=== PATIENT | male | born 1945 | race Caucasian/White ===

== ENCOUNTER → 2016-12-25 | Outpatient (CLI) | payer OTHER ==
[~2016-12-25] MED LIST: ADVA250A INH; ALBU17I INH; AMIO400T2 PO; BENZ100C4 PO; COUM3TAB PO; DIPH2%T PO; FEXO180 PO; TAB-TAB PO
[2016-12-25 13:53] LABS: BLOOD GAS BASE EXCESS -2.8 mmol/L (-2-2); BLOOD GAS CARBOXYHEMOGLOBIN 1.2 % (0-4); BLOOD GAS HCO3 21 mmol/L (22-26); BLOOD GAS METHEMOGLOBIN 1.2 % (0-2); BLOOD GAS O2 HGB SATURATION 94 % (90-100); BLOOD GAS OXYGEN CONTENT 19.1 Vol % (12.0-20.0); BLOOD GAS PCO2 33 mmHg (38-42); BLOOD GAS PO2 91 mmHg (61-120); BLOOD GAS TOTAL HGB 14.4 G/DL (12.0-16.0); CRITICAL VALUE NO; DRAW SITE RT RADIAL; FIO2 21 %; NUMBER OF ARTERIAL PUNCTURES 1; STAT NO; TEMP CORR TO 98.6; ULNAR PULSE PRESENT
== END ==
LOC: HRSP 12:46
PROVIDERS: ATTEND Internal Medicine Pulmonary Disease
DX: J45.909 Unspecified asthma, uncomplicated (principal)
CPT/HCPCS: 36600; 82805; 94060; 94620; 94726; 94729

== ENCOUNTER → 2017-04-08 | Day surgery (SDC) | payer OTHER ==
[~2017-04-08] MED LIST changes: +LIDOCAINE 1.5%/EPINEPHrine 1:200,000 PF SOLN 30 ML AMP ONE; +MIDAZOLAM HCL 2 MG/2 ML VIAL ONE; +ONDANSETRON HCL 4 MG/2 ML VIAL IV PUSH ONE; +PROPOFOL 200 MG/20 ML AMP IV ONE
--- NOTE | 2017-04-08 10:56 | TN ---
cc: JOANNA WILLIAM M.D. DATE OF SURGERY: 04/08/2017 PREOPERATIVE DIAGNOSIS Melanoma in situ, left mandibular skin. POSTOPERATIVE DIAGNOSIS Melanoma in situ, left mandibular skin. PROCEDURE Wide local excision melanoma in situ left mandibular skin with two-layer closure; excision size 1 x [address] Joanna William. DISH ROOM WORKER Luz Wallace, MS III. ANESTHESIA General with laryngeal mask. INDICATION A 71-year-old gentleman who was sent to us in consultation by Dr. Ly' office, Ninfa Waller, who did a shave biopsy of a pigmented lesion on the left mandibular skin. The patient was found to have melanoma in situ with positive peripheral and deep margins. Recommendations were made for wide local excision. INTRAOPERATIVE FINDINGS Successful removal of the zhen of concern. This specimen was sent with short stitch at 12 o'clock, long stitch at 3 o'clock. ESTIMATED BLOOD LOSS Minimal. DESCRIPTION OF PROCEDURE IN DETAIL The patient was identified as Solitario Dixon, taken to the operating room and placed in supine position. Sequential compression devices were placed on bilateral lower extremities. Following induction of adequate general anesthesia with a laryngeal mask the area of concern was prepped and draped in the usual sterile fashion with Betadine. A timeout procedure was performed. Following completion of the timeout procedure to everyone's satisfaction within the room, proposed elliptical incision lines of Sondra were made with a marking pen and infiltrated with local anesthetic. The incision was carried out with a scalpel and hemostasis controlled with electrocautery. Using sharp dissection the specimen was removed in its entirety and marked and sent to pathology. The small bleeding points were controlled with electrocautery. Once the wound was ensured to be dry it was closed in two layers with 3-0 Vicryl and 4-0 Monocryl. Dressings were applied with Mastisol and half-inch brown Steri-Strips. The patient tolerated the procedure without apparent complication. Sponge, needle and instrument counts were correct at the end of the case. MD RADHA Collado/JAIR /10:29 AM /10:43 AM
== END | disposition home or self-care (01) ==
LOC: ESDC 08:01
PROVIDERS: ATTEND Surgery Trauma Surgery
DX: D03.39 Melanoma in situ of other parts of face (principal); Z01.810 Encounter for preprocedural cardiovascular examination
CPT/HCPCS: 00300; 11643; 12052; 88305; 93005; J2405; J2250

== ENCOUNTER 2017-05-28 12:00 | Day surgery (SDC) | payer OTHER ==
[~2017-05-28] VITALS: Ht 177.8 cm; Wt 83.4 kg
[~2017-05-28 12:00] MED LIST changes: -LIDOCAINE 1.5%/EPINEPHrine 1:200,000 PF SOLN 30 ML AMP ONE; -MIDAZOLAM HCL 2 MG/2 ML VIAL ONE; -ONDANSETRON HCL 4 MG/2 ML VIAL IV PUSH ONE; -PROPOFOL 200 MG/20 ML AMP IV ONE
[2017-05-28] MEDS ORDERED: CHLORHEXIDINE GLUCONATE 2 % 1 PACK (2 CLOTHS) TOPICAL PRN (12:30)
[2017-05-28] MEDS ORDERED: LACTATED RINGER'S 1000 ML IV PRN (12:30)
[2017-05-28] MEDS ORDERED: LORazepam 1 MG TAB SL SCH (12:30)
[2017-05-28] MEDS ORDERED: SODIUM CHLORID 0.9% 500 ML IV PRN (12:30)
[2017-05-28] MEDS ORDERED: POVIDONE IODINE 5% (ANTISEPSIS KIT) 4 APPLICATIONS EACH NARE PRN (12:30)
[2017-05-28] MEDS ORDERED: SODIUM CHLORID 0.9% 500 ML INJ 500 ML IV SCH (12:30)
[2017-05-28] MEDS ORDERED: METOPROLOL TARTRATE 25 MG TAB PO PRN (12:30)
[2017-05-28 12:43] LABS: AUTOMATED NEUTROPHIL # 3.4 TH/MM3 (1.8-7.7); BASOPHIL # 0.1 TH/MM3 (0-0.2); BASOPHIL % 0.9 % (0.0-2.0); EOSINOPHIL # 0.5 TH/MM3 (0-0.4); EOSINOPHIL % 7.8 % (0.0-4.0); HEMATOCRIT 44.8 % (39.0-51.0); HEMO FLAGS DIFF FINAL; LYMPH % 27.5 % (9.0-44.0); LYMPHOCYTE # 1.7 TH/MM3 (1.0-4.8); MEAN CELL VOLUME 97.2 FL (80.0-100.0); MEAN CORPUSCULAR HEMOGLOBIN 32.6 PG (27.0-34.0); MEAN CORPUSCULAR HGB CONC 33.5 % (32.0-36.0); MONO % 10.5 % (0.0-8.0); NEUT % 53.3 % (16.0-70.0); PLATELET COUNT 262 TH/MM3 (150-450); RED BLOOD COUNT 4.61 MIL/MM3 (4.50-5.90); RED CELL DISTRIBUTION WIDTH 13.2 % (11.6-17.2); WHITE BLOOD COUNT 6.3 TH/MM3 (4.0-11.0)
[2017-05-28] MEDS ORDERED: ALLE60TA PO (12:48)
[2017-05-28] MEDS ORDERED: UMEC1AER INH (12:48)
[2017-05-28] MEDS ORDERED: UNIS25TA3 (12:48)
[2017-05-28] MEDS ORDERED: VENTAER INH (12:48)
[2017-05-28] MEDS ORDERED: APIX5TAB PO (12:48)
[2017-05-28 12:51] LABS: APTT (PATIENT) 27.4 SEC (24.3-30.1); PROTHROMBIN TIME - PATIENT 10.8 SEC (9.8-11.6)
[2017-05-28 13:02] LABS: BICARBONATE 27.6 MEQ/L (21.0-32.0); POTASSIUM 4.4 MEQ/L (3.5-5.1)
--- NOTE | 2017-05-28 14:43 | EKG ---
Date Performed: 05/28/2017 Time Performed: 12:44:40 PTAGE: 71 years EKG: Atrial fibrillation. Left anterior fascicular block Abnormal ECG Compared to prior electroc ardiogram, atrial fibrillation is now present . PREVIOUS TRACING : 12/07/2010 06.11 DOCTOR: Elan Soriano Interpretating Date/Time 05/28/2017 14:41:09
[2017-05-28] MEDS ORDERED: LEVOFLOXACIN 500 MG PREMIX INJ 100 ML IV ONE (16:12)
[2017-05-28] MEDS ORDERED: HEPARIN-D5W 25,000 U/250 ML 250 ML ONE (16:27)
[2017-05-28] MEDS ORDERED: ISOPROTERENOL HCL 1 MG/5 ML AMP ONE (16:27)
[2017-05-28] MEDS ORDERED: HEPARIN SODIUM - IV 10,000 UNITS/10 ML VIAL ONE (16:27)
[2017-05-28] MEDS ORDERED: PROTAMINE SULFATE 50 MG/5 ML VIAL ONE (16:27)
[2017-05-28] MEDS ORDERED: LORazepam 2 MG/ML VIAL IV PUSH PRN (18:45)
[2017-05-28] MEDS ORDERED: ONDANSETRON HCL 4 MG/2 ML VIAL IV PUSH PRN (18:45)
[2017-05-28] MEDS ORDERED: ALBUTEROL SULFATE 90 MCG/ACT HFA 8 GM INHALER INH PRN (18:45)
[2017-05-28] MEDS ORDERED: oxyCODONE/ACETAMINOPHEN 5 MG/325 MG TAB PO PRN ×2 (18:45)
[2017-05-28] MEDS ORDERED: LIDOCAINE HCL 1% 50 ML VIAL INFIL PRN (18:45)
[2017-05-28] MEDS ORDERED: ATROPINE SULFATE 1 MG/ML VIAL IV PUSH PRN (18:45)
[2017-05-28] MEDS ORDERED: BACITRACIN OINT 0.9 GM PKT TOP ONE (18:45)
[2017-05-28] MEDS ORDERED: SODIUM CHLOR 0.9% 250 ML INJ 250 ML IV PRN (18:45)
--- NOTE | 2017-05-28 18:49 | CATHPROC ---
[facility] HIS Report Study Information Study Number Admission Scheduled Start Study Start [id number] May 28 2017 12:00PM 05/28/2017 May 28 2017 3:32PM [place] Service Electrophysiology Study Admit Source Facility Department Other [facility] - Assistant Field Hockey Coach Physician and Clinical Staff Initial Ajit Zafar Technician Helper Instrument Joycelyn Mart,BATCH MIXER OPERATOR TECH2 Technician Helper Instrument Love García,SHORT ORDER FRY COOK Other Anesthesia, SENIOR ENERGY ANALYST Other Tamy Vargas,NELDARN Recorder Magda West RN Scrub Mian Bright,RT(R) Procedures Performed Procedure Location (Site) Vessel Name Ablation Procedure Cardioversion ICE CATHETER INSERT RA Atruim Equipment Time Carpet Repairer Description Size Mfg Part Number Used/Scraped NEEDLE, TRANSSEPTAL NRG 98 15:34 [facility] [id number] Used C1 BIOSFliqzTER [id number] 17:15 CATHETER, ACUNAV FR10 ICE FR 10 Used INC. *[id number] [employer]/ EP 15:34 KIT, TRANSDUCER / AFIB [id number] Used PACER [id number] CATHETER, TACTICATH ABLAT BUNDLE 15:34 BUNDLE-[employer]. SARAY Used 65 BUNDLE *[id number]- BUNDLE [id number] CATHETER, FR7 OPTIMA SPIRAL 15:34 BUNDLE-[employer]. SARAY FR7 *[id number]- Used BUNDLE BUNDLE [id number] 15:34 BUNDLE-[employer]AY CATHETER, JSN, QUAD BUNDLE FR 5 *[id number]- Used BUNDLE [id number] 15:34 BUNDLE-[employer]. SARAY CATHETER, JSN, QUAD BUNDLE FR 5 *[id number]- Used BUNDLE [id number] SET, COOL POINT TUBING 15:34 BUNDLE-[employer]. SARAY *[id number]- Used BUNDLE BUNDLE SHEATH, FR8.5 STEERABLE SM 15:34 BUNDLE-[employer]. SARAY 71CM [id number] Used 71CM BUNDLE COVER, TRANSDUCER CABLE 15:34 CONE StormMQ [id number] Used ACUNAV 15:34 CORDIS/PACER SHEATH, FR10 FOREIGN 11CM FR 10 [id number] Used 15:34 CORDIS/PACER SHEATH, FR9 FOREIGN 11CM FR 9 [id number] Used 16:53 CORDIS/PACER SHEATH, FR9 FOREIGN 11CM FR 9 [id number] Used [id number] 15:34 [employer] PACK, CCL CUSTOM * Used *[id number] 15:34 MEDLINE PACER MCCARTHY, LIMB * 2530 *[id number] Used [id number] 15:34 [facility] MEDICAL SHEATH, FR4.5 PRELUDE 11CM FR 4.5 Used [id number] 15:34 NAMIC TUBING, HIGH PRESSURE 48" 48" Used *[id number] 15:34 NAMIC TUBING, HIGH PRESSURE 48" 48" Used *[id number] 15:34 [employer] BL[employer]ET,WARM AIR CCL * Used *[id number] [id number] 15:34 [facility] MEDICAL ELECTRODE KIT, HOLA X SURFACE * Used *[id number] 15:34 [facility] MEDICAL SHEATH, EPS, FR6 FAST CATH FR 6 Used *[id number] 15:34 [facility] MEDICAL SHEATH, EPS, FR7 FAST CATH FR 7 [id number] Used [id number] 15:34 [facility] MEDICAL SHEATH, EPS, FR8 FAST CATH FR 8 Used *[id number] [facility] PAD, ELECTROSURGICAL 15:34 * [id number] *[id number] Used SURGICAL GROUNDING (BLUE) History: Allergies Allergy Reaction Ambien Psychosis Ativan Lethargy SPLENDA Cramping lorazepam Lethargy zolpidem Psychosis History: Risk Factors Dyslipidemia Yes Chronic Lung Disease Labs Hgb (g/dl) Hct (%) RBC (MIL/MM3) WBC (l/cumm) Platelets (thousands) 11.60-17.00 35.00-51.00 4.00-5.90 4.00-11.00 150.00-450.00 15.0 44 4.6 6.3 262 Glucose (mg/dl) BUN (mg/dl) Creatinine (mg/dl) BUN:Creatinine (1:x) 74.00-106.00 7.00-18.00 0.50-1.30 10.00-20.00 93 15 1.0 15 Na (meq/l) K (meq/l) 136.00-145.00 3.50-5.10 137 4.4 INR (PTT:PT) 0.90-1.10 1 Medication Medication Total Dose (Bolus/Oral) Medication Total Dosage/Unit 1% XYLOCAINE 40 mL HEPARIN 72333 units PROTAMINE 40 mg Medications (Bolus/Oral) Medication Time Given Dosage/Unit Administered By Reason 1% XYLOCAINE 05/28/2017 5:08:03 PM 20 mL Ajit Redding For pain 20 mL 1% XYLOCAINE given in lab by Ajit Redding in Left Groin via Subcutaneous. Ordered by Bhupendra Redding. Reason: For pain. 1% XYLOCAINE 05/28/2017 5:12:20 PM 20 mL Ajit Redding As per physicians ve rbal order 20 mL 1% XYLOCAINE given in lab by Ajit Redding in Right Groin via Subcutaneous. Ordered by Jimmy Redding. Reason: As per physicians verbal order. HEPARIN 05/28/2017 5:18:24 PM 21704 units Ajit Redding As per physicians verbal order 56250 units HEPARIN given in lab by Ajit Redding in Right Antecubital via Peripheral IV. Ordered by Ajit Redding. Reason: As per physicians verbal order. PROTAMINE 05/28/2017 6:38:32 PM 40 mg Anesthesia, SENIOR ENERGY ANALYST As per physicians ve rbal order 40 mg PROTAMINE given in lab by Anesthesia, SENIOR ENERGY ANALYST in Right Antecubital via Peripheral IV. Ordered by Ajit Joe. Reason: As per physicians verbal order. Medication (Drip) Medication Time Given Dosage/Unit Concentration/Unit Diluent (ml) Solution HEPARIN DRIP 05/28/2017 5:32:40 PM 1000 units/hr 60227 units 250 D5W 1000 units/hr HEPARIN DRIP given in lab by Ajit Redding in Right Antecubital via Peripheral IV. Pump /Drip Flow = 10 ml/hr [place] [address] units in 250 ml. Ordered by Ajit Redding. Reason: As per physicians verbal or robin. ISUPREL 05/28/2017 6:21:00 PM 20 mcg/min 1 mg 250 NaCl .9 20 mcg/min ISUPREL given in lab by Anesthesia, SENIOR ENERGY ANALYST in Right Antecubital via Peripheral IV. Pump/Drip Flow = 300 ml/hr using NaCl .9 with a concentration of 1 mg in 250 ml. Ordered by Ajit Redding. Reason: As per physicians verbal order. IV Solutions 05/28/2017 4:14:14 PM 0 mL (IV) NaCl .9 IV Solutions given in lab by Anesthesia, SENIOR ENERGY ANALYST in Left Antecubital via Peripheral IV. Pump/Drip Flow = 50 ml/hr using NaCl .9. Ordered by Ajit Redding. Reason: As per physicians verbal order. IV Solutions 05/28/2017 4:14:39 PM 0 mL (IV) NaCl .9 IV Solutions given in lab by Anesthesia, SENIOR ENERGY ANALYST in Right Antecubital via Peripheral IV. Pump/Drip Flow = 50 ml/hr using NaCl .9. Ordered by Ajit Redding. Reason: As per physicians verbal order. LEVAQUIN 05/28/2017 5:00:00 PM 100 mL/hr 500 100 NaCl .9 100 mL/hr LEVAQUIN given in lab by Anesthesia, SENIOR ENERGY ANALYST via Peripheral IV. Pump/Drip Flow = 0 ml/hr using NaCl .9 with a concentration of 500 in 100 ml. Ordered by Ajit Redding. Reason: As per physicians verbal order. ellsworth insertion Initial Case Assessment Cardiovascular HR NIBP Chest Pain 80 158/101 0 Edema Present Skin color Skin None Normal Warm Dry Neurological State Oriented to time-place- Alert Moves all extremities person Respiration - General Respiration Rate SpO2 (%) (B/min) 20 98 Final Case Assessment Cardiovascular HR NIBP 104 132/64 Edema Present Skin color Skin None Normal Warm Dry Neurological State Oriented to time-place- Alert Moves all extremities person Respiration - General Respiration Rate SpO2 (%) (B/min) 20 98 Chronological Log Time Study Chronological Log 16:11:13 Patient arrived via Bed. 16:11:30 Patient Name, D.O.B, / Armband Verified By R.N. 16:11:37 Consent signed by the physician and the patient and verified by the Assistant Field Hockey Coach staff. 16:12:18 Pre-op and post- op instructions given; patient acknowledges understanding of instructions. 16:12:20 Verbal Stimulation=2 Physical Stimulation=2 Airway=2 Respiration=2 TOTAL=10. (0=absent, 1=l imited, 2=present) 16:12:41 Anesthesia at bedside. Assumes care of patient. Vivek SENIOR ENERGY ANALYST 16:12:52 Presedation assessment performed by Assistant Field Hockey Coach RN. 16:12:55 Patient has been NPO for More than 6Hrs. 16:13:04 Skin Breakdown- cut above left elbow 16:13:11 Patient Warmer Placed on the Table. 16:13:17 Disposable Defibrillator Pads Placed On Patient. 16:13:19 Sahra Prominences Protected 16:13:26 A # 20 IV was noted in the Antecubital (left). Grade = ~GRADE~ 16:13:57 A # 20 IV was noted in the Antecubital (right). Grade = ~GRADE~ IV Solutions given in lab by Anesthesia, SENIOR ENERGY ANALYST in Left Antecubital via Peripheral IV. Pump/Drip Flow = 50 ml/hr using 16:14:14 NaCl .9. Ordered by Ajit Redding. Reason: As per physicians verbal order. IV Solutions given in lab by Anesthesia, SENIOR ENERGY ANALYST in Right Antecubital via Peripheral IV. Pump/Drip Flow = 50 ml/hr using 16:14:39 NaCl .9. Ordered by Ajit Redding. Reason: As per physicians verbal order. 16:15:00 History and physical on the chart or being dictated. Assessment: Initial Case, HR=80 BPM, ZETV=908/101 mmhg, Chest Pain=0, Edema=None, Color=Normal, Skin = Warm, Dry 16:15:03 Neurological: State=Alert, Ox3, RINALDI Respiration: Resp=20 B/min, SpO2=98 % 16:15:15 Table restraints applied according to hospital policy 16:15:42 Right groin prepped with 2% chlorhexidine, and draped after a 3 min. waiting time. 16:15:47 Left groin prepped with 2% chlorhexidine, and draped after a 3 min. waiting time. Patient intubated by anesthesiologist. Indwelling uretheral catheter inserted by Lesia MENDEZ w ith clear yellow urine 16:50:50 noted. 100 mL/hr LEVAQUIN given in lab by Anesthesia, SENIOR ENERGY ANALYST via Peripheral IV. Pump/Drip Flow = 0 ml/hr using NaCl .9 with 17:00:00 a concentration of 500 in 100 ml. Ordered by Ajit Redding. Reason: As per physicians verbal or robin. ellsworth insertion 17:00:50 MD arrived. Time Out. Correct patient, procedure, procedure equipment, site and side verified with physicia n present. Time 17:05:23 concurred by MD, individual staff and SENIOR ENERGY ANALYST. Time Out #2 - Consents verified, patient in correct position, all results are labled and displa yed, safety precautions 17:05:27 taken, antibiotics administered. Time out concurred by MD, individual staff and SENIOR ENERGY ANALYST in procedu re 17:05:31 Case Start 17:05:34 SARI begun at bedside. 17:07:53 SARI completed. 20 mL 1% XYLOCAINE given in lab by Ajit Redding in Left Groin via Subcutaneous. Ordered by Ajit Guzmán. 17:08:03 Reason: For pain. 17:08:42 Vascular access was obtained in the Fem Vein (left). 17:09:17 Vascular access was obtained in the Fem Vein (left). 17:09:18 Vascular access was obtained in the Fem Vein (left). 17:09:40 Vascular access was obtained in the Fem Art (left). 17:10:50 A SHEATH, EPS, FR6 FAST CATH FR 6 was advanced into the Fem Vein (left) using the Percutane ous technique. 17:11:12 A SHEATH, EPS, FR7 FAST CATH FR 7 was advanced into the Fem Vein (left) using the Percutane ous technique. 17:11:24 A SHEATH, FR10 FOREIGN 11CM FR 10 was advanced into the Fem Vein (left) using the Percutaneo us technique. 17:11:42 A SHEATH, FR4.5 PRELUDE 11CM FR 4.5 was advanced into the Fem Art (left) using the Percutan eous technique. 20 mL 1% XYLOCAINE given in lab by Ajit Redding in Right Groin via Subcutaneous. Ordered by Ajit Vance. 17:12:20 Reason: As per physicians verbal order. 17:12:30 Vascular access was obtained in the Fem Vein (right). 17:12:49 Vascular access was obtained in the Fem Vein (right). 17:12:55 A SHEATH, EPS, FR8 FAST CATH FR 8 was advanced into the Fem Vein (right) using the Percutan eous technique. A CATHETER, JSN, QUAD BUNDLE FR 5 was advanced vis Fem Vein (left) and placed in the CS. Placem ent was visually 17:14:24 confirmed under fluoroscopy. A CATHETER, JSN, QUAD BUNDLE FR 5 was advanced vis Fem Vein (left) and placed in the HIS. Place ment was 17:14:40 visually confirmed under fluoroscopy. 17:15:03 CATHETER, ACUNAV FR10 ICE FR 10 Was Postioned. A SHEATH, FR8.5 STEERABLE SM 71CM BUNDLE 71CM was exchanged in the Fem Vein (right). This was n ecessary in 17:16:43 order for catheter support. 17:17:21 Sanford needle inserted. 17:18:03 Transseptal. Sanford needle removed. 09173 units HEPARIN given in lab by Ajit Redding in Right Antecubital via Peripheral IV. Order ed by Ajit Redding. 17:18:24 Reason: As per physicians verbal order. A CATHETER, FR7 OPTIMA SPIRAL BUNDLE FR7 was advanced vis Fem Vein (right) and placed in the LA . Placement 17:20:00 was visually confirmed under fluoroscopy. 17:26:24 Activated Clotting Time Drawn 17:27:28 Mapping in progress. 17:30:00 Mapping completed. 17:30:10 Mapping catheter removed. A CATHETER, TACTICATH ABLAT 65 BUNDLE was advanced vis Fem Vein (right) and placed in the LA. P lacement was 17:30:30 visually confirmed under fluoroscopy. 17:30:45 Ablation begun. 17:31:58 ACT (Normal Range 90-180) = 369 1000 units/hr HEPARIN DRIP given in lab by Ajit Redding in Right Antecubital via Peripheral IV . Pump/Drip Flow = 10 17:32:40 ml/hr [place] [address] units in 250 ml. Ordered by Ajit Redding. Re ason: As per physicians verbal order. 17:40:40 Reference ECG taken 18:00:24 Activated Clotting Time Drawn 18:06:00 ACT (Normal Range 90-180) = 352 18:16:16 Ablation catheter removed. 18:16:29 Mapping catheter reinserted. 18:18:15 ECG rhythm of AF noted. Patient cardioverted at 200 joules. Success synchcronized 20 mcg/min ISUPREL given in lab by AnesthesiaCECILIA in Right Antecubital via Peripheral IV. Pum p/Drip Flow = 300 18:21:00 ml/hr using NaCl .9 with a concentration of 1 mg in 250 ml. Ordered by Ajit Redding. Reaso n: As per physicians verbal order. 18:31:43 Isuprel gtt stopped. 18:34:47 PACU called. Spoke to Chandu 18:34:58 Bedside Report will be given. 18:35:18 All catheters removed by Dr. Redding. Assessment: Final Case, JA=579 BPM, WDQB=543/64 mmhg, Edema=None, Color=Normal, Skin = Warm, Dr y 18:35:45 Neurological: State=Alert, Ox3, RINALDI Respiration: Resp=20 B/min, SpO2=98 % 18:36:39 Sheath(s) left in place, will be removed in Holding Area. NS infusing to sheaths at kvo rat e. 40 mg PROTAMINE given in lab by Anesthesia, SENIOR ENERGY ANALYST in Right Antecubital via Peripheral IV. Ordere d by Ajit Redding. 18:38:32 Reason: As per physicians verbal order. 18:39:23 No case complications noted. 18:39:57 Sterile dressing applied to site 18:40:05 Cine recording checked. 18:40:22 Defibrillator and ground pads removed. Skin intact. 18:44:52 Activated Clotting Time Drawn 18:45:11 Ablation procedure performed: AFIB. 18:45:23 EP Procedure was performed. 18:46:00 ACT (Normal Range 90-180) = 111 18:47:12 Case End End Study - Contrast Media Used In Study Contrast Total Opened (mL) Total Used (mL) Total Wasted (mL) Unspecified 0 0 0 End Study - Maximum Contrast Load Max Contrast Load (mL) 417.0 End Study - Radiation Exposure Fluoro Time (minutes) 1.1 End Study - Patient Disposition Complications Transferred To Interventional Outcome No Telemetry Bed successful
[2017-05-28] MEDS ORDERED: DO NOT ADM ANY ANTICOAGULANT DRUGS PRN (19:17)
[2017-05-28] MEDS ORDERED: *RESP: ALBUTEROL 2.5 MG/3 ML NEB (PRN) PERIprocedural Use ONLY NEB ONE (19:51)
[2017-05-28] MEDS ORDERED: *ONDANSETRON 4 MG VIAL PERIprocedural Use ONLY ONE (20:19)
--- NOTE | 2017-05-28 21:02 | EKG ---
Date Performed: 05/28/2017 Time Performed: 20:03:42 PTAGE: 71 years EKG: Sinus rhythm LEFT ANTERIOR FASCICULAR BLOCK ABNORMAL ECG Compared to prior electrocardiogram, Normal sinus rhythm has replaced atrial fibrillation . PREVIOUS TRACING : 05/28/2017 12.44 DOCTOR: Elan Soriano Interpretating Date/Time 05/28/2017 21:01:48
[2017-05-28] MEDS: LORATADINE 10 MG TAB PO SCH (21:52)
[2017-05-28] MEDS: AMIODARONE 200 MG TAB PO SCH (21:52)
[2017-05-28] MEDS: APIXABAN 5 MG TABLET PO SCH (21:52)
[2017-05-28 22:00] VITALS: PULSE 76
[2017-05-28 23:00] VITALS: BP 128/94; PULSE 80; PULSE 83; RESP 16; TEMP 97.7; O2SAT 98
[2017-05-29] VITALS (12 sets, daily range): BP systolic 109–143; BP diastolic 77–90; PULSE 49–88; RESP 16; TEMP 97.7; O2SAT 95–98
[2017-05-29] MEDS ORDERED: RESP: ALBUTEROL 2.5 MG/IPRATROPIUM 0.5 MG NEB (SCH) ONE (05:49)
[2017-05-29 06:58] LABS: APTT (PATIENT) 24.8 SEC (24.3-30.1); PROTHROMBIN TIME - PATIENT 10.9 SEC (9.8-11.6)
[2017-05-29] MEDS ORDERED: AMIO200T PO ×2 (08:09)
--- NOTE | 2017-05-29 08:13 | PD.CARD.PN ---
Subjective Subjective Remarks Feels okay. Objective Medications Current Medications Medications (Trade) Dose Ordered Sig/Grant Route Start Time Stop Time Status Last Admin Lactated Ringer's 1,000 ml @ 30 mls/hr Q24H PRN IV 05/28/17 12:30 05/31/17 12:29 Sodium Chloride 500 ml @ 30 mls/hr [id number] PRN IV 05/28/17 12:30 05/31/17 12:29 (Lopressor) 25 mg INSTRUCTOR MODELING PRN PO 05/28/17 12:30 05/31/17 12:29 (Betadine 5% Antisepsis Kit) 1 applic INSTRUCTOR MODELING PRN EACH NARE 05/28/17 12:30 05/31/17 12:29 (Chlorhexidine 2% Cloth) 3 pack INSTRUCTOR MODELING PRN TOPICAL 05/28/17 12:30 05/31/17 12:29 Sodium Chloride 500 ml @ 30 mls/hr [id number] IV 05/28/17 12:30 (Ativan) 1 mg INSTRUCTOR MODELING SL 05/28/17 12:30 05/31/17 12:29 (Percocet 5-325 Mg) 1 tab Q4H PRN PO 05/28/17 18:45 (Percocet 5-325 Mg) 2 tab Q4H PRN PO 05/28/17 18:45 (Ativan Inj) 0.5 mg UNSCH PRN IV PUSH 05/28/17 18:45 05/29/17 18:44 (Atropine Inj) 0.5 mg UNSCH PRN IV PUSH 05/28/17 18:45 Sodium Chloride 250 ml @ 500 mls/hr ONCE PRN IV 05/28/17 18:45 05/29/17 18:44 (Zofran Inj) 4 mg Q4H PRN IV PUSH 05/28/17 18:45 (Xylocaine 1% Inj (50 ml)) 10 ml UNSCH PRN INFIL 05/28/17 18:45 05/29/17 18:44 (Proair Hfa Inh) 2 puff Q4H PRN INH 05/28/17 18:45 (Eliquis) 5 mg BID PO 05/28/17 21:00 05/28/17 21:52 (Claritin) 10 mg DAILY PO 05/28/17 21:00 05/28/17 21:52 (Cordarone) 400 mg BID PO 05/28/17 21:00 06/04/17 09:01 05/28/17 21:52 (Cordarone) 200 mg DAILY PO 06/05/17 09:00 Miscellaneous Information ALL NURSING DEPARTME... UNSCH PRN .XX 05/28/17 19:17 05/29/17 19:16 Vital Signs / I&O Vital Signs Date Time Temp Pulse Resp B/P (MAP) Pulse Ox O2 Delivery O2 Flow Rate FiO2 05/29/17 05:00 73 05/29/17 04:00 71 05/29/17 03:00 97.7 76 16 109/77 (88) 95 05/29/17 03:00 70 05/29/17 02:00 70 05/29/17 01:00 72 05/29/17 00:00 76 05/28/17 23:00 97.7 83 16 128/94 (105) 98 05/28/17 23:00 80 05/28/17 22:00 76 05/28/17 20:34 97.6 73 16 124/83 (97) 98 Nasal Cannula 2 05/28/17 20:30 71 15 118/82 (94) 96 Nasal Cannula 2 05/28/17 20:15 70 16 116/79 (91) 96 Nasal Cannula 2 05/28/17 20:00 69 17 120/78 (92) 100 Nasal Cannula 2 05/28/17 19:45 71 16 118/77 (91) 95 Nasal Cannula 2 05/28/17 19:30 72 17 124/76 (92) 94 Nasal Cannula 2 05/28/17 19:17 97.4 78 16 133/83 (100) 95 Nasal Cannula 2 I/O 05/28/17 05/28/17 05/28/17 05/29/17 05/29/17 05/29/17 07:00 15:00 23:00 07:00 15:00 23:00 Intake Total 0 ml 960 ml Output Total 500 ml 300 ml Balance -500 ml 660 ml Intake Oral 0 ml 960 ml Output Urine Total 500 ml 300 ml Physical Exam GENERAL: Well-nourished, well-developed patient. SKIN: Warm and dry. Groin sites soft with no bruising or bleeding. HEAD: Normocephalic. EYES: No scleral icterus. No injection or drainage. NECK: Supple, trachea midline. No JVD or lymphadenopathy. CARDIOVASCULAR: Regular rate and rhythm without murmurs, gallops, or rubs. RESPIRATORY: Breath sounds equal bilaterally. No accessory muscle use. GASTROINTESTINAL: Abdomen soft, non-tender, nondistended. EXTREMITIES: No cyanosis, or edema. NEUROLOGICAL: Awake, alert, and oriented x 3. Non-focal. Laboratory Laboratory Tests Test 05/28/17 12:30 05/29/17 06:01 White Blood Count 6.3 TH/MM3 Red Blood Count 4.61 MIL/MM3 Hemoglobin 15.0 GM/DL Hematocrit 44.8 % Mean Corpuscular Volume 97.2 FL Mean Corpuscular Hemoglobin 32.6 PG Mean Corpuscular Hemoglobin Concent 33.5 % Red Cell Distribution Width 13.2 % Platelet Count 262 TH/MM3 Mean Platelet Volume 7.2 FL Neutrophils (%) (Auto) 53.3 % Lymphocytes (%) (Auto) 27.5 % Monocytes (%) (Auto) 10.5 % Eosinophils (%) (Auto) 7.8 % Basophils (%) (Auto) 0.9 % Neutrophils # (Auto) 3.4 TH/MM3 Lymphocytes # (Auto) 1.7 TH/MM3 Monocytes # (Auto) 0.7 TH/MM3 Eosinophils # (Auto) 0.5 TH/MM3 Basophils # (Auto) 0.1 TH/MM3 CBC Comment DIFF FINAL Differential Comment Prothrombin Time 10.8 SEC 10.9 SEC Prothromb Time International Ratio 1.0 RATIO 1.0 RATIO Activated Partial Thromboplast Time 27.4 SEC 24.8 SEC Blood Urea Nitrogen 15 MG/DL Creatinine 1.02 MG/DL Random Glucose 93 MG/DL Calcium Level 8.5 MG/DL Sodium Level 137 MEQ/L Potassium Level 4.4 MEQ/L Chloride Level 105 MEQ/L Carbon Dioxide Level 27.6 MEQ/L Anion Gap 4 MEQ/L Estimat Glomerular Filtration Rate 72 ML/MIN Assessment and Plan Problem List: (1) Atrial fibrillation ICD Codes: I48.91 - Unspecified atrial fibrillation Plan: Continue eliquis. Amiodarone 400 mg by mouth twice a day 5 days then 200 mg daily. (2) S/P ablation of atrial fibrillation ICD Codes: Z98.890 - Other specified postprocedural states; Z86.79 - Personal history of other diseases of the circulatory system Plan: Discharge home. Follow-up with Dr. mireles in 3 weeks per my discussion with him. Problem Qualifiers (1) Atrial fibrillation: Qualified Codes: I48.91 - Unspecified atrial fibrillation Nolvia Woodson May 29, 2017 08:13
--- NOTE | 2017-05-29 08:32 | PD.CARD ---
Atrial Fibrillation Ablation PROCEDURE DATE: May 28, 2017 PROCEDURES PERFORMED: 1. Electrophysiology study on Isuprel infusion 2. CS cannulation 3. 3-D mapping 4. Transseptal approach 5. Right and left heart catheterization 6. Intracardiac echo 7. Radiofrequency ablation of atrial fibrillation 8. Pulmonary vein isolation 9. Posterior wall ablation 10. Mitral valve isolation 11. Mitral line creation 12. Left atrial tachycardia ablation 13. Roof line creation 14. Floor line creation 15. Anterior wall ablation 16. Cardioversion INDICATIONS FOR THE PROCEDURE Mr. Dixon is a 71-year-old male with atrial fibrillation, on multiple medications, symptomatic, on anticoagulation, referred for electrophysiology study and ablation. The risks, the nature and the benefits of the procedure were clearly stated to him. The risks include pneumothorax, cardiac perforation, stroke, need for open heart surgery and even . The patient understood and agreed to proceed. DESCRIPTION OF THE PROCEDURE IN DETAIL As written informed consent was obtained prior to esophageal echocardiogram, the patient was kept on the table where he was prepped and draped in the usual sterile fashion. Conscious sedation was initiated and maintained throughout the procedure by the anesthesiologist. Once sedation was verified, the right and left inguinal areas were anesthetized with 2% Xylocaine. Using modified Seldinger technique, the left femoral vein was cannulated on three occasions, three guidewires were advanced. Over the wire a 6, 7 and a 10-Wallisian Hemaquet were advanced. Then the left femoral artery was cannulated on one occasion, one guidewire was advanced. Over the wire a 4-Wallisian Hemaquet was advanced. Then the right femoral vein was cannulated on one occasion, one guidewire was advanced. Over the wire a 8-Wallisian Hemaquet was advanced. Then under fluoroscopic guidance through the 6 and 7-Wallisian Hemaquet, two 5-Wallisian Alyse curved quadripolar electrophysiology catheters were advanced and placed around the His as well as coronary sinus. Basic interval was measured. The patient was in atrial fibrillation. Through the 10-Wallisian Hemaquet, a [employer] intracardiac echo catheter was advanced and placed at the right atrium. Multiple view was obtained. There was no pericardial effusion, pulmonary vein was seen, atrial septal was visualized. Then the 8-Wallisian Hemaquet in the right femoral vein was exchanged for Agilis transseptal sheath that was placed all the way to the superior vena cava. Through the sheath a Re needle was advanced, then the sheath, the dilator and the needle were progressed until foci engaged. Once engaged, the needle was advanced. RF was delivered for 2 seconds. I was able to cross into the left atrium. Once the needle crossed, the dilator was advanced. Once the dilator crossed, the sheath was advanced. Once the sheath crossed, the dilator and the needle were removed. At this point I did flush the system and fluid movement was seen in the left atrium the indicates the sheath is in good position. The patient already received 10,000 units of heparin. The goal is to keep an ACT around 350 during ablation. Then through the sheath a [employer]. Edi 20 pulse circumferential catheter was advanced. Using [employer] endocardial solution mapping system, a two-dimensional configuration of the left atrium was obtained. Points were taken at the left superior and inferior veins, right superior and inferior veins, mitral valve, and appendages. Then through the sheath a St. Edi TactiCath 65cm 3.5mm irrigated tipped mapping and radiofrequency ablation catheter was advanced. Esophageal probe was placed temperature monitoring during ablation. When it increased to 0.5 degrees Celsius above baseline, I moved to a different area of the atrium. First I did isolate the left superior and inferior vein. I did make a [place] around the veins. Posterior was ablated. Then a roof line was created, a floor line was created, a mitral line was isolated, then the mitral valve was isolated. At that point the patient was in left atrial tachycardia. I did create a line from the floor to the roof area, passing by the left atrial appendage. Then the right superior and inferior veins were isolated. I did remap the atrium. There is no significant signal in the atrium. At this point I decided to proceed with cardioversion. A 200 sync biphasic joule was delivered that converted the patient into sinus rhythm. At that point I did advance the circumferential catheter again into the vein. There was no signal into the vein, pacing from the vein showed no conduction to the atrium. Isuprel infusion was initiated at 20 mcg for over 10 minutes. No tachyarrhythmia was induced, post Isuprel no tachyarrhythmia was induced. At that point the procedure was complete. All catheters were removed, atrial septal sheath was exchanged for 9-Wallisian Hemaquet, intracardiac echo showed no pericardial effusion. There is still good flow in the pulmonary vein. The patient is going to be transferred to the recovery room. No incident report. The patient tolerated the procedure. Blood loss was minimal. FINDINGS 1. Electrocardiogram: At baseline the patient was in atrial fibrillation, post procedure the patient was in sinus rhythm. 2. Basic interval: Base cycle length was around 490. Post ablation she was around 920 milliseconds. AH at 100 and HV at 54 milliseconds. 3. Tachyarrhythmia: Atrial fibrillation was mapped and ablated. Atrial tachycardia was ablated. The ablation was successful. CONCLUSION Successful electrophysiology study, mapping, radiofrequency ablation of atrial fibrillation, left atrial tachycardia, pulmonary vein isolation, posterior ablation, mitral valve isolation, mitral line creation, roof line creation, floor line creation, left atrial tachycardia, and cardioversion. COMMENTS AND RECOMMENDATIONS The patient is going to be transferred to the telemetry unit. Will be observed and when stable can be discharged home. Ajit Redding MD May 29, 2017 08:32
[2017-05-29] MEDS: LORATADINE 10 MG TAB PO SCH (10:03)
[2017-05-29] MEDS: APIXABAN 5 MG TABLET PO SCH (10:04)
[2017-05-29] MEDS: AMIODARONE 200 MG TAB PO SCH (10:04)
--- NOTE | 2017-05-29 14:05 | EKG ---
Date Performed: 05/29/2017 Time Performed: 05:56:36 PTAGE: 71 years EKG: Sinus rhythm Left axis deviation Abnormal ECG No significant change from prior electrocardiogram. PREVIOUS TRACING : 05/28/2017 20.03 DOCTOR: Elan Soriano Interpretating Date/Time 05/29/2017 14:04:57
[2017-06-05] MEDS ORDERED: AMIODARONE 200 MG TAB PO SCH (09:00)
== END 2017-05-29 12:08 | disposition home or self-care (01) ==
LOC: HDOC 12:00 → HDIC 12:01 → HCIS 20:42 → HDOC 05-29 12:08
PROVIDERS: ATTEND Internal Medicine Interventional Cardiology
DX: I48.91 Unspecified atrial fibrillation (principal); J44.9 Chronic obstructive pulmonary disease, unspecified; Z87.891 Personal history of nicotine dependence
CPT/HCPCS: 00537; 80048; 85002; 85025; 85610; 85730; 86850; 86900; 86901; 93005; 93312; 93320; 93325; 93613; 93623; 93656; 93662; 94640; 94664; C1730; C1731; C1732; C1759; C1766; C2630; J1644; J1956; J2405; J2720; J7613

== ENCOUNTER 2017-11-26 09:43 | Day surgery (SDC) | payer OTHER ==
[~2017-11-26 09:43] MED LIST changes: -ADVA250A INH; -ALBU17I INH; +ALLE60TA PO; +AMIO200T PO; -AMIO400T2 PO; +APIX5TAB PO; -BENZ100C4 PO; -COUM3TAB PO; -DIPH2%T PO; -FEXO180 PO; -TAB-TAB PO; +UMEC1AER INH; +UNIS25TA3; +VENTAER INH
[2017-11-26] MEDS ORDERED: LACTATED RINGER'S 1000 ML IV PRN (10:30)
[2017-11-26] MEDS ORDERED: CHLORHEXIDINE GLUCONATE 2 % 1 PACK (2 CLOTHS) TOPICAL PRN (10:30)
[2017-11-26] MEDS ORDERED: POVIDONE IODINE 5% (ANTISEPSIS KIT) 4 APPLICATIONS EACH NARE PRN (10:30)
[2017-11-26] MEDS ORDERED: INSULIN HUMAN REGULAR 1,000 UNITS/10 ML VIAL SQ PRN (10:30)
[2017-11-26] MEDS ORDERED: METOPROLOL TARTRATE 25 MG TAB PO PRN (10:30)
[2017-11-26] MEDS ORDERED: SODIUM CHLORID 0.9% 500 ML IV PRN (10:30)
[2017-11-26] MEDS ORDERED: MELA5 PO (10:37)
[2017-11-26] MEDS ORDERED: MULT-65 PO (10:37)
--- NOTE | 2017-11-26 14:11 | MR ---
cc: Ajit Redding MD DATE: 11/26/2017 PROCEDURE PERFORMED: Cardioversion. INDICATIONS: Mr. Dixon is a 72-year-old gentleman with a history of atrial fibrillation, previous ablation and left atrial tachycardia uncontrolled, to undergo cardioversion. The risks, the nature and the benefits of the procedure were clearly stated to him. Risks include cardiac arrest, need for pacing support and even . The patient understood and agreed to proceed. PROCEDURE: After written informed consent was obtained, the patient was brought to the DOC Unit he was evaluated by the anesthesiologist. Once sedation was verified, anterolateral pad was placed. A 200 sync biphasic joule energy was delivered that converted the patient into sinus rhythm. No incident reported. CONCLUSIONS: Successful cardioversion. COMMENT AND RECOMMENDATIONS: The patient is going to be transferred to the recovery room. The patient is going to be observed and discharged home later today. Ajit Redding MD HS/SB , 01:42 PM , 02:10 PM
--- NOTE | 2017-11-27 14:18 | EKG ---
Date Performed: 11/26/2017 Time Performed: 14:28:14 PTAGE: 72 years EKG: Sinus rhythm with borderline 1st degree A-V block. Left anterior fascicular block Borderline ECG PREVIOUS TRACING : 11/26/2017 10.04 DOCTOR: Melvin Vásquez Interpretating Date/Time 11/29/2017 07:44:59
--- NOTE | 2017-11-27 14:32 | EKG ---
Date Performed: 11/26/2017 Time Performed: 10:04:54 PTAGE: 72 years EKG: Atrial flutter. Possible left anterior fascicular block Inferior ST-T changes are nonspecif ic Abnormal ECG PREVIOUS TRACING : 05/29/2017 05.56 DOCTOR: Melvin Vásquez Interpretating Date/Time 11/29/2017 07:44:50
== END 2017-11-26 14:35 | disposition home or self-care (01) ==
LOC: HDIC 09:43 → HSDC 09:43
PROVIDERS: ATTEND Internal Medicine Interventional Cardiology
DX: I48.91 Unspecified atrial fibrillation (principal); R00.2 Palpitations; J44.9 Chronic obstructive pulmonary disease, unspecified; Z86.711 Personal history of pulmonary embolism; Z79.01 Long term (current) use of anticoagulants; Z85.820 Personal history of malignant melanoma of skin
CPT/HCPCS: 92960; 93005